=== PATIENT | female | born 1990 | race American Indian/Alaskan Native ===

== ENCOUNTER 2021-10-26 18:01 | Emergency (ER) | payer SELFPAY ==
[2021-10-26 18:34] VITALS: BP 110/65
--- NOTE | 2021-10-26 19:19 | Emergency Department Report ---
ED General Adult HPI - General Chief complaint: Urogenital-Female Stated complaint: TOOTHACHE AND UTI Time Seen by Provider: 10/26/21 18:43 Source: patient Mode of arrival: Ambulatory Limitations: No Limitations - History of Present Illness Initial comments: Patient is a 31-year-old female presents emergency room with complaints of 2 complaints. She states her first complaint is upper dental pain for approximately 1 month. She states that she has 2 cracked teeth present. she states that she was advised that she needs to have a dental procedure but did not follow back up with a dentist. She denies any facial swelling, difficulty swallowing, fever, chills, nausea, vomiting, diarrhea. Patient also presents stating that she has a UTI. She states for a few days she has had urinary frequency and occasional dysuria. She denies any hematuria, vaginal bleeding, abnormal vaginal discharge. no allergies to medicines. Severity scale (0 -10): 10 - Related Data Previous Rx's Medication Instructions Recorded Last Taken Type Promethazine [Phenergan TAB] 25 mg PO Q6HR PRN #12 tab 05/31/15 Unknown Rx traMADoL [Ultram 50 MG tab] 50 mg PO Q6HR PRN #16 tablet 05/31/15 Unknown Rx Sulfamethoxazole/Trimethoprim 1 each PO BID #14 tablet 10/26/18 Unknown Rx [Bactrim DS TAB] Chlorhexidine Mouthwash [Peridex] 15 ml MM BID #1 bottle 10/26/21 Unknown Rx Naproxen 500 mg PO BID PRN #14 tablet 10/26/21 Unknown Rx cephALEXin [Keflex] 500 mg PO BID 7 Days #14 capsule 10/26/21 Unknown Rx Allergies Allergy/AdvReac Type Severity Reaction Status Date / Time No Known Allergies Allergy Unverified 05/31/15 10:55 ED Review of Systems ROS: Stated complaint: TOOTHACHE AND UTI Other details as noted in HPI Comment: All other systems reviewed and negative ED Past Medical Hx - Surgical History Additional Surgical History: c-sect; hernia repair - Social History Smoking Status: Never Smoker Substance Use Type: None - Medications Home Medications: Home Medications Medication Instructions Recorded Confirmed Last Taken Type Promethazine [Phenergan TAB] 25 mg PO Q6HR PRN #12 tab 05/31/15 Unknown Rx traMADoL [Ultram 50 MG tab] 50 mg PO Q6HR PRN #16 tablet 05/31/15 Unknown Rx Sulfamethoxazole/Trimethoprim 1 each PO BID #14 tablet 10/26/18 Unknown Rx [Bactrim DS TAB] Chlorhexidine Mouthwash [Peridex] 15 ml MM BID #1 bottle 10/26/21 Unknown Rx Naproxen 500 mg PO BID PRN #14 tablet 10/26/21 Unknown Rx cephALEXin [Keflex] 500 mg PO BID 7 Days #14 capsule 10/26/21 Unknown Rx ED Physical Exam - General Limitations: No Limitations General appearance: alert, in no apparent distress - Head Head exam: Present: atraumatic, normocephalic - Eye Eye exam: Present: normal appearance - ENT ENT exam: Present: mucous membranes moist, other (two dental caries present with two cracked teeth, no induration of the gumline, no fluctuance, no drainage, no facial edema, uvula is midline, no uvular edema or deviation, no trismus, no tongue elevation, no muffled voice) - Respiratory Respiratory exam: Absent: respiratory distress, accessory muscle use - Neurological Exam Neurological exam: Present: alert, oriented X3 - Psychiatric Psychiatric exam: Present: normal affect, normal mood - Skin Skin exam: Present: warm, dry, intact ED Course Vital Signs 10/26/21 18:28 Temperature 97.8 F Pulse Rate 90 Respiratory 18 Rate Blood Pressure 110/65 [Right] O2 Sat by Pulse 99 Oximetry ED Medical Decision Making - Medical Decision Making Patient is a 31-year-old female presents emergency room with complaints of 2 complaints. She states her first complaint is upper dental pain for approximately 1 month. She states that she has 2 cracked teeth present. she states that she was advised that she needs to have a dental procedure but did not follow back up with a dentist. She denies any facial swelling, difficulty swallowing, fever, chills, nausea, vomiting, diarrhea. Patient also presents stating that she has a UTI. She states for a few days she has had urinary frequency and occasional dysuria. She denies any hematuria, vaginal bleeding, abnormal vaginal discharge. no allergies to medicines. Vitals are normal. On exam:two dental caries present with two cracked teeth, no induration of the gumline, no fluctuance, no drainage, no facial edema, uvula is midline, no uvular edema or deviation, no trismus, no tongue elevation, no muffled voice. UA shows evidence of mild UTI. Urine is negative. Patient has no signs of dental abscess, facial cellulitis, facial abscess or Ludwigs at this time. Advised patient Please take medication as prescribed. Increase your water intake. Follow-up with a dentist. Follow-up with your primary care doctor. Return to emergency room for any new or worsening symptoms. Critical care attestation.: If time is entered above; I have spent that time in minutes in the direct care of this critically ill patient, excluding procedure time. ED Disposition Clinical Impression: Dentalgia, Dental caries UTI (urinary tract infection) Qualifiers: Urinary tract infection type: acute cystitis Hematuria presence: without hematuria Qualified Code(s): N30.00 - Acute cystitis without hematuria Disposition: HOME / SELF CARE / HOMELESS Is pt being admited?: No Does the pt Need Aspirin: No Condition: Stable Instructions: Urinary Tract Infection, Adult, [id number] Additional Instructions: Please take medication as prescribed. Increase your water intake. Follow-up with a dentist. Follow-up with your primary care doctor. Return to emergency room for any new or worsening symptoms. Prescriptions: cephALEXin [Keflex] 500 mg PO BID 7 Days #14 capsule Naproxen 500 mg PO BID PRN #14 tablet PRN Reason: pain Chlorhexidine Mouthwash [Peridex] 15 ml MM BID #1 bottle Referrals: KORTNEY ADKINS MD [Staff Physician] - 3-5 Days [facility] [Provider Group] - 3-5 Days [facility] [Outside] - 3-5 Days Time of Disposition: 19:56 Print Language: CZECH
[2021-10-26 19:33] LABS: Bilirubin,Urine NEG (Negative); Blood,Urine NEG (Negative); Color,Urine Yellow (Yellow); Mucus,Urine 3+ /HPF; Protein,Urine <15 mg/dL mg/dL (Negative)
[2021-10-26 19:34] LABS: HCG Qualitative,Urine Negative (Negative)
== END 2021-10-26 20:27 | disposition home or self-care (01) ==
LOC: ED 18:01
DX: K02.9 Dental caries, unspecified (principal); N39.0 Urinary tract infection, site not specified; Z98.890 Other specified postprocedural states; Z79.899 Other long term (current) drug therapy
CPT/HCPCS: 81001; 81025; 87076; 87086; 87186; 99283